=== PATIENT | female | born 1980 | race Caucasian/White ===

== ENCOUNTER 2019-08-19 15:40 | Day surgery (SDC) | payer BC ==
[~2019-08-19] VITALS: Ht 162.6 cm; Wt 72.8 kg
[2019-08-19] VITALS (11 sets, daily range): BP systolic 119–142; BP diastolic 60–89; PULSE 64–74; TEMP 97.5–97.9
[~2019-08-19 15:40] MED LIST: CLARITIN 1010 MG/TAB PO; MOTRIN 600600 MG/TAB PO; NO HOME MEDICATIONS; PERCOCET 325 MG1 TA2 PO; PYRIDIUM 100MG100 MG PO; TYLENOL 325MG325 MG PO
[2019-08-19] MEDS ORDERED: INDERAL LA 80MG80 MG PO (16:47)
[2019-08-19] MEDS ORDERED: FIORICET 325 MG1 TA1 PO (16:50)
[2019-08-19] MEDS ORDERED: EMGALITY120 MG/1 M SQ (16:51)
[2019-08-19] MEDS ORDERED: ZANAFLEX2 MG PO (16:53)
[2019-08-19] MEDS ORDERED: MAGNESIUM ELEME30 MG PO (16:54)
[2019-08-19] MEDS ORDERED: VITAMIN D31000 I1 PO (16:55)
[2019-08-19] MEDS ORDERED: OSCAL 500 TAB500 MG PO (16:56)
--- NOTE | 2019-08-19 17:02 | NUR ---
CALL LIGHT IN REACH AT BEDSIDE.
--- NOTE | 2019-08-19 17:15 | NUR ---
PT ARRIVED TO OUT PATIENT UNIT AMBULATING WITHOUT DIFFICULTY, STATES RIGHT FLANK PAIN AND RATES IT AT A 5 ON 0-10 SCALE. PT STATES COMING FROM [facility]. IV NOTED IN RIGHT AC WITH COBAN WRAP TO KEEP IN PLACE. VSS, LUNGS CLEAR, HRR, AFEBRILE. IN BAY #7 WITH HER, CALL LIGHT IN REACH.
[2019-08-19] MEDS ORDERED: MOTRIN 600600 MG/TAB PO (17:32)
--- NOTE | 2019-08-19 17:32 | NUR ---
PT C/O HEADACHE AND RATED PAIN AT 6 ON 0-10 SCALE. NORCO 1 TAB GIVEN PO FOR PAIN. WILL CONT TO MONITOR.
[2019-08-19] MEDS ORDERED: PERCOCET 325 MG1 TA2 PO (17:33)
[2019-08-19] MEDS ORDERED: COLACE 100100 MG/CAP PO (17:33)
--- NOTE | 2019-08-19 17:36 | NUR ---
PT PAIN WAS RESOLVED, PT STATED HEADACHE WAS BETTER.
--- NOTE | 2019-08-19 19:50 | NUR ---
RECEIVED FROM OR PER CART POST LAP APPY. IS ALERT AND ORIENTED X4. SPOUSE AT BEDSIDE.
--- NOTE | 2019-08-19 20:15 | NUR ---
PT COMPLAINS OF ABD PAIN 12/03. MEDICATED WITH DILAUDID 0.5MG IVP NOW. BOX LUNCH PROVIDED.
--- NOTE | 2019-08-19 21:00 | NUR ---
PT COMPLAINS OF DIFFICULTY BREATHING, ASSISTED TO STANDING AT BEDSIDE, FEELS IMMEDIATELY BETTER. HAS MILD DISCOMFORT IN SHOULDERS. ENCOURAGED AMBULATION.
--- NOTE | 2019-08-19 22:00 | NUR ---
PATIENT AMBULATING IN HALLWAY WITH SPOUSE. REPORTS FEELING BETTER. WANTS TO GO HOME. DR MASSEY NOTIFIED AND ORDERS RECEIVED.
--- NOTE | 2019-08-19 22:28 | NUR ---
DOSE OF PERCOCET GIVEN FOR ABDOMINAL PAIN 10/03.
--- NOTE | 2019-08-19 22:50 | NUR ---
REVIEWED DISCHARGE INSTRUCTIONS WITH PATIENT AND SPOUSE. QUESTIONS ANSWERED. DC'D IV SITE FROM RIGHT AC WITHOUT PROBLEM.
--- NOTE | 2019-08-19 23:00 | NUR ---
DISCHARGED VIA W/C TO PRIVATE CAR, PERSONAL BELONGINGS AND DISCHARGE INSTRUCTIONS INCLUDING RX FOR MOTRIN AND RX FOR PERCOCET SENT WITH PATIENT.
== END 2019-08-19 23:00 | disposition home or self-care (01) ==
LOC: SDCO 15:40 → SURG 17:09 → SDCO 17:30
DX: K35.80 Unspecified acute appendicitis (principal)
CPT/HCPCS: OP; J0690; J1170; J2405; J2704; J3010

== ENCOUNTER → 2020-03-23 | Outpatient (CLI) | payer BC ==
[~2020-03-23] MED LIST changes: +COLACE 100100 MG/CAP PO; +EMGALITY120 MG/1 M SQ; +FIORICET 325 MG1 TA1 PO; +INDERAL LA 80MG80 MG PO; +MAGNESIUM ELEME30 MG PO; +OSCAL 500 TAB500 MG PO; +VITAMIN D31000 I1 PO; +ZANAFLEX2 MG PO
== END ==
LOC: COL.RAD 09:31
DX: C18.1 Malignant neoplasm of appendix (principal); N20.0 Calculus of kidney; N28.1 Cyst of kidney, acquired; Z90.89 Acquired absence of other organs
CPT/HCPCS: Q9967

== ENCOUNTER 2020-08-25 08:43 | Day surgery (SDC) | payer BC ==
[~2020-08-25] VITALS: Ht 162.6 cm; Wt 72.9 kg
[~2020-08-25 08:43] MED LIST changes: +ZANAFLEX CAPSULE2 MG PO; -ZANAFLEX2 MG PO
[2020-08-25 09:44] VITALS: BP 130/78; PULSE 58; TEMP 97.8
[2020-08-25] MEDS ORDERED: ZOFRAN ODT4 MG PO (10:17)
[2020-08-25] MEDS ORDERED: OMNICEF 300MG300 MG PO (10:18)
[2020-08-25 12:05] VITALS: BP 124/70; PULSE 58; TEMP 97.5
[2020-08-25 12:20] VITALS: BP 140/66; PULSE 60
[2020-08-25 12:35] VITALS: BP 143/66; PULSE 56
[2020-08-25 12:50] VITALS: BP 140/80; PULSE 55
== END 2020-08-25 13:17 | disposition home or self-care (01) ==
LOC: SDCO 08:43
DX: N20.2 Calculus of kidney with calculus of ureter (principal); G43.909 Migraine, unspecified, not intractable, without status migrainosus; Z20.822 Contact with and (suspected) exposure to COVID-19; Z85.09 Personal history of malignant neoplasm of other digestive organs
CPT/HCPCS: C1769; C2617; J0690; J1100; J1885; J2405; J2704; J3010; J7120

== ENCOUNTER 2021-02-18 09:52 | Day surgery (SDC) | payer BC ==
[~2021-02-18] VITALS: Ht 160 cm; Wt 70.9 kg
[~2021-02-18 09:52] MED LIST changes: +OMNICEF 300MG300 MG PO; +ZOFRAN ODT4 MG PO
[2021-02-18 11:07] VITALS: BP 120/78; PULSE 64; TEMP 98.2
[2021-02-18] MEDS ORDERED: NURTEC ODT75 MG PO (11:24)
[2021-02-18 13:34] VITALS: BP 131/76; PULSE 88; TEMP 96.7
--- NOTE | 2021-02-18 13:34 | NUR ---
Patient returns to room 2 per cart from PACU accompanied by Chasidy PERALTA and is awake and alert. IV fluids infusing and site is free of redness. Scope sites to abdomen dry and wound edges well approximated. Patient denies pain or nausea. Temp 97.3 and room air sats 100%. Siderails up x2 and call light in reach.
[2021-02-18 13:45] VITALS: BP 118/77; PULSE 65
--- NOTE | 2021-02-18 13:45 | NUR ---
Resting and sipping on water. Eating pudding. Denies nausea.
--- NOTE | 2021-02-18 14:01 | NUR ---
Medicated with Roxicodone for pain at 4/10.
[2021-02-18 14:06] VITALS: BP 121/77; PULSE 74
--- NOTE | 2021-02-18 14:06 | NUR ---
Resting with eyes closed when not disturbed.
--- NOTE | 2021-02-18 14:23 | NUR ---
Assisted up to the bathroom and voids. Gait steady. Tolerates activity well.
--- NOTE | 2021-02-18 15:00 | NUR ---
IV discontinued and site is free of redness or swelling. Voices understanding of home cares and follow up as scheduled. Instructed that pain medication will be available for excelsior picker at [facility].
== END 2021-02-18 15:00 | disposition home or self-care (01) ==
LOC: SDCO 09:52
DX: Z30.2 Encounter for sterilization (principal); N83.201 Unspecified ovarian cyst, right side; N94.89 Other specified conditions associated with female genital organs and menstrual cycle; Z20.822 Contact with and (suspected) exposure to COVID-19; Z79.899 Other long term (current) drug therapy; Z80.51 Family history of malignant neoplasm of kidney
CPT/HCPCS: J1100; J1885; J2405; J2704; J3010; J7120

== ENCOUNTER 2022-08-25 09:52 | Day surgery (SDC) | payer OTHER ==
[~2022-08-25] VITALS: Ht 162.6 cm; Wt 68.4 kg
[2022-08-25] VITALS (10 sets, daily range): BP systolic 12–142; BP diastolic 52–90; PULSE 68–96; TEMP 97.9–98.2
[~2022-08-25 09:52] MED LIST changes: +NURTEC ODT75 MG PO
--- NOTE | 2022-08-25 12:10 | NUR ---
Bruce MEJIA COAL WASHER AT BEDSIDE. RECEIVED A VERBAL ORDER FOR SCOPALOMINE PATCH.
--- NOTE | 2022-08-25 16:05 | NUR ---
Pt arrived to unit from PACU at approx 1538. Pt is alert/oriented x 4. She denies pain but reports some "bladder" discomfort from the perez insertion done prior to her arrival to the unit. Lap sites x 4 present with skin glue - no drainage from surgical incisions. 16 FR perez cath with clear, yellow urine noted in drainage bag. Pt has a small abrasion on her rt. knee covered by a bandaid that was present before her surgery today. is at the bedside. Valuables denied. Pt drinking PO fluids and tolerating w/o nausea or abd. pain. Orientation provided to room/unit/call system. Med rec completed. Pharmacy and allergies reviewed. Pt denies other needs. Call light is in her reach.
--- NOTE | 2022-08-25 16:36 | NUR ---
Pt resting supine in bed with HOB elevated approx 30 degrees. She continues to report some lower abd. discomfort. Oxicodone given per PRN order. SCD's are on bilaterally. Reviewed instructions on use of IS Q1hr WA. Pt voiced understanding and did not have questions. She denies additional needs. Call light is in her reach.
--- NOTE | 2022-08-25 17:30 | NUR ---
Pt sitting up in bed. She ate a sandwich from [employer] and is tolerating this w/ no complaints of nausea at this time. Pt reports her lower abd. pain has improved after taking PRN oxi. is at the bedside. She denies additional needs. Call light is in her reach. Perera cath patent to drainage bag.
--- NOTE | 2022-08-25 20:04 | NUR ---
Patient assessed around this time, rates her pain at 1-2/10, with IV infusing well to left hand, with 4 lap sites edges well approximated, with perez catheter draining well, head to toe assessmet done, see shift assessment, encouraged ambulation, SCD's on, call light and personal items within reach, will continue to monitor.
--- NOTE | 2022-08-26 00:01 | NUR ---
Patient's IV going off, hooked another bag of IV fluid at this time, reports pain to abdomen but didn't rate the pain, oxycodone given per request, will continue to monitor.
[2022-08-26 04:11] VITALS: BP 106/56; PULSE 60; TEMP 97.9
--- NOTE | 2022-08-26 06:39 | NUR ---
Patient had an uneventful night, denies need at this time.
--- NOTE | 2022-08-26 07:01 | NUR ---
Removed catheter at this time without any issues, report given to Barbara.
[2022-08-26 07:45] VITALS: BP 103/57; PULSE 66; TEMP 98.4
--- NOTE | 2022-08-26 08:29 | NUR ---
rounded plan of care reviewed. Patient up and we ambulated halls and she did well. She had her breakfast tray without nausea. She reports pain as managed at this time. Lap site x4 edges well approximated, open to air. She reports passing flatus. IV to INt. Plans for discharge today
--- NOTE | 2022-08-26 08:54 | NUR ---
SW met with the patient to discuss discharge plan. The patient lives in [place] with her , Yoseph (ph#[phone]), and their children. She reports independence with ADLs and does not have any DME. The patient's primary care provider is Bre Goddard PA-C and she receives her medications from [facility]. The patient does not have a DPOA-HC and she was not interested in completing one at this time. The patient plans to return home with her family upon discharge. No additional needs at this time. *Discharge plan: home with family*
--- NOTE | 2022-08-26 09:29 | NUR ---
Initial visit; Patient thanked Store Specialist for looking in on her and offering God's blessings and keeping her in Store Specialist's prayers. Store Specialist will follow 8up and thanked patient for choosing [facility].
--- NOTE | 2022-08-26 10:10 | NUR ---
Patient ready for discharge. Her spouse here to take her home. We reviewed all discharge instructions including activity restrictions, diet & incision cares. Medication list reviewed & new prescriptions. Patient given pain medication prior to Dc to prepare for the hour long drive home. Vern ambulated out with all belongings, her spouse taking her home.
== END 2022-08-26 10:46 | disposition home or self-care (01) ==
LOC: SDCO 09:52 → SURG 15:30 → SDCO 16:15 → SURG 17:49 → SDCO 08-26 10:46
PROVIDERS: Obstetrics & Gynecology
DX: N80.03 Adenomyosis of the uterus (principal); N72 Inflammatory disease of cervix uteri; D27.1 Benign neoplasm of left ovary; N81.89 Other female genital prolapse
CPT/HCPCS: OP; A4314; J0690; J1100; J1170; J1885; J2405; J2704; J3010; J7120